=== PATIENT | female | born 1985 | race Caucasian/White ===

== ENCOUNTER 2017-12-23 21:12 | Inpatient (IN) | payer OTHER ==
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
[2017-12-23 22:13] LABS: ALT 26 U/L (9-52); AST 51 U/L (14-36); Acetaminophen <10.0 ug/mL; Albumin 4.7 g/dL (3.5-5.0); Alcohol <10 mg/dL; Alkaline Phosphatase 95 U/L (38-126); Anion Gap 13 mmol/L; Blood Urea Nitrogen 10 mg/dL (7-17); Calcium 10.7 mg/dL (8.4-10.2); Carbon Dioxide 25 mmol/L (22-30); Chloride 106 mmol/L (98-107); Glucose 102 mg/dL (74-99); Potassium 4.7 mmol/L (3.5-5.1); Sodium 144 mmol/L (137-145); Total Bilirubin 0.8 mg/dL (0.2-1.3); Total Protein 7.9 g/dL (6.3-8.2)
[2017-12-23 22:15] LABS: Ammonia <9 umol/L (<30)
[2017-12-23 22:17] LABS: Lactic Acid, Venous 2.4 mmol/L (0.7-2.0)
--- NOTE | 2017-12-23 22:30 | XR ---
EXAMINATION TYPE: XR chest 1V portable DATE OF EXAM: 12/23/2017 COMPARISON: NONE HISTORY: Fever TECHNIQUE: Single frontal view of the chest is obtained. FINDINGS: Heart and mediastinum are normal. Lungs are clear. Diaphragm is normal. Bony thorax is nor mal. Pulmonary vascularity is normal. IMPRESSION: Normal chest
[2017-12-23 22:51] LABS: Basophils % (A) 0 %; Eosinophils # (A) 0.2 k/uL (0-0.7); Eosinophils % (A) 1 %; HGB 13.1 gm/dL (11.4-16.0); Lymphocytes # (A) 2.5 k/uL (1.0-4.8); Lymphocytes % (A) 16 %; MCH 28.1 pg (25.0-35.0); MCHC 32.8 g/dL (31.0-37.0); MCV 85.5 fL (80.0-100.0); Mean Platelet Volume 7.6; Monocytes # (A) 0.7 k/uL (0-1.0); Monocytes % (A) 5 %; Neutrophils # (A) 12.5 k/uL (1.3-7.7); Neutrophils % (A) 78 %; Platelet Count 333 k/uL (150-450); RBC 4.68 m/uL (3.80-5.40); RDW 15.1 % (11.5-15.5)
[2017-12-23 22:53] LABS: Amorphous Sediment,Urine Few /hpf; Appearance,Urine Cloudy (Clear); Bilirubin,Urine Negative (Negative); Blood,Urine Negative (Negative); Color,Urine Yellow; Glucose,Urine (UA) Negative (Negative); Ketones,Urine Trace (Negative); Leukocyte Esterase,Urine Negative (Negative); Mucus,Urine Rare /hpf; Nitrite,Urine Negative (Negative); PH, Urine 8.5 (5.0-8.0); Protein,Urine Negative (Negative); RBC,Urine 2 /hpf (0-5); Specific Gravity,Urine 1.011 (1.001-1.035); Squamous Epithelial Cell,Urine 1 /hpf (0-4); Urobilinogen,Urine <2.0 mg/dL (<2.0); WBC,Urine <1 /hpf (0-5)
[2017-12-23 22:54] LABS: Amphetamine Screen,Urine Not Detected (NotDetected); Barbiturate Screen,Urine Not Detected (NotDetected); Benzodiazepines Screen,Urine Not Detected (NotDetected); Cocaine Screen,Urine Not Detected (NotDetected); Methadone Screen, Urine Not Detected (NotDetected); Opiate Screen,Urine Not Detected (NotDetected); Oxycodone Screen, Urine Not Detected (NotDetected); Phencyclidine Screen,Urine Not Detected (NotDetected); Tricyclic Antidepressant,Urine Not Detected (NotDetected); Urn Cannabinoid Scrn Detected (NotDetected)
[2017-12-24] MEDS ORDERED: SODIUM CHLORIDE 0.9% 1,000 ML IV ONE (00:52)
[2017-12-24] MEDS ORDERED: LORazepam 2 MG/ML INJ IM STA (03:50)
[2017-12-24] MEDS ORDERED: MAG HYDROX/AL HYDROX/SIMETH 30 ML CUP PO PRN (04:55)
[2017-12-24] MEDS ORDERED: MAGNESIUM HYDROXIDE 2,400 MG/10 ML CUP PO PRN (04:55)
[2017-12-24] MEDS ORDERED: ACETAMINOPHEN TAB 325 MG TAB PO PRN (04:55)
[2017-12-24] MEDS ORDERED: ZIPRASIDONE 20 MG VIAL IM PRN (04:55)
[2017-12-24 05:44] VITALS: BP 149/98; PULSE 114; RESP 16; TEMP 99.3
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
[2017-12-24] MEDS ORDERED: NICOTINE 21MG/24HR PATCH TRANSDERM SCH (09:00)
== END 2017-12-24 06:40 | disposition short-term general hospital (02) | DRG 885 ==
LOC: EC 21:12 → 3MHU 12-24 03:37
PROVIDERS: ADMIT Psychiatry & Neurology Psychiatry; ATTEND Psychiatry & Neurology Psychiatry
DX: F23 Brief psychotic disorder (principal); E86.0 Dehydration; F17.200 Nicotine dependence, unspecified, uncomplicated; R50.9 Fever, unspecified; R51 Headache
CPT/HCPCS: 36415; 71045; 80053; 80306; 80320; 81001; 81025; 82075; 82140; 83520; 83605; 83735; 84443; 85025; 96360; 96372; 99285

== ENCOUNTER 2017-12-24 05:38 | Inpatient (IN) | payer OTHER ==
[2017-12-24] MEDS ORDERED: ACETAMINOPHEN TAB 325 MG TAB PO PRN (07:00)
[2017-12-24] MEDS ORDERED: NALOXONE 0.4 MG/ML 1 ML VIAL IV PRN (07:00)
[2017-12-24] MEDS ORDERED: HYDROcodone/APAP 5-325MG 1 EACH TAB PO PRN (07:00)
[2017-12-24] MEDS ORDERED: DOCUSATE 100 MG CAP PO PRN (07:00)
[2017-12-24] MEDS ORDERED: ONDANSETRON 4 MG/2 ML VIAL IVP PRN (07:00)
[2017-12-24] MEDS ORDERED: CALCIUM CARBONATE 500 MG CHEWABLE PO PRN (07:00)
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
[2017-12-24] MEDS ORDERED: VANCOMYCIN 1,000 MG in SODIUM CHLORIDE 0.9% 250 ML IVPB STA (07:11)
[2017-12-24] MEDS ORDERED: VANCOMYCIN IV PER PHARMACY 1 EACH MISC MISCELLANE PRN (07:11)
--- NOTE | 2017-12-24 07:54 | CT ---
EXAMINATION TYPE: CT brain wo con DATE OF EXAM: 12/24/2017 COMPARISON: NONE HISTORY: LOWE, possible bacterial meningitis CT DLP: 935.9 mGycm. Automated Exposure Control for Dose Reduction was Utilized. TECHNIQUE: CT scan of the head is performed without contrast. FINDINGS: There is no acute intracranial hemorrhage, mass effect, or midline shift identified. The ventricles and sulci are within normal limits in size. Joseph-white matter differentiation is maintain ed. There appears to be old fracture deformity medial wall left orbit axial image 9. Globes are intac t bilaterally. Visualized paranasal sinuses are clear. No suspicious opacification of mastoid air geraldo ls is seen. IMPRESSION: No acute intracranial hemorrhage, mass effect, or midline shift is seen.
[2017-12-24 08:36] LABS: Basophils % (A) 0 %; Eosinophils # (A) 0.1 k/uL (0-0.7); Eosinophils % (A) 1 %; HCT 38.8 % (34.0-46.0); HGB 12.7 gm/dL (11.4-16.0); Lymphocytes # (A) 1.9 k/uL (1.0-4.8); Lymphocytes % (A) 18 %; MCH 28.6 pg (25.0-35.0); MCHC 32.8 g/dL (31.0-37.0); MCV 87.1 fL (80.0-100.0); Mean Platelet Volume 8.2; Monocytes # (A) 0.5 k/uL (0-1.0); Monocytes % (A) 5 %; Neutrophils # (A) 7.7 k/uL (1.3-7.7); Neutrophils % (A) 74 %; Platelet Count 293 k/uL (150-450); RBC 4.45 m/uL (3.80-5.40); WBC 10.4 k/uL (3.8-10.6)
[2017-12-24 08:51] LABS: ALT 33 U/L (9-52); AST 52 U/L (14-36); Albumin 3.8 g/dL (3.5-5.0); Alkaline Phosphatase 82 U/L (38-126); Anion Gap 10 mmol/L; Blood Urea Nitrogen 10 mg/dL (7-17); Calcium 9.3 mg/dL (8.4-10.2); Carbon Dioxide 22 mmol/L (22-30); Chloride 110 mmol/L (98-107); Glucose 96 mg/dL (74-99); Magnesium 2.1 mg/dL (1.6-2.3); Potassium 4.3 mmol/L (3.5-5.1); Prothrombin Time 10.2 sec (9.0-12.0); Sodium 142 mmol/L (137-145); Total Bilirubin 0.7 mg/dL (0.2-1.3); Total Protein 6.6 g/dL (6.3-8.2)
[2017-12-24] MEDS ORDERED: cefTRIAXone 2 MG in SODIUM CHLORIDE 0.9% 50 ML IVPB SCH (09:00)
[2017-12-24] MEDS: SODIUM CHLORIDE 0.9% 1,000 ML IV SCH ×2 (09:44→17:27)
[2017-12-24] MEDS: cefTRIAXone IN SWFI 2,000 MG/20 ML SYRINGE IVP SCH (09:45)
[2017-12-24] MEDS: VANCOMYCIN 1,250 MG in SODIUM CHLORIDE 0.9% 250 ML IVPB SCH ×3 (09:45→23:16)
[2017-12-24] MEDS: NICOTINE 21MG/24HR PATCH TRANSDERM SCH (09:45)
--- NOTE | 2017-12-24 12:25 | P.PN ---
Progress Note - Text Progress Note Date: 12/24/17 Briefly this is a 32-year-old female that was admitted to the mental health unit initially for confusion disorientation and headache and was found to be febrile with a leukocytosis of 16 and elevated serum lactic acid of 2.4. She was evaluated by Dr. lien zayas when transferred to the medical unit for concern for possible meningitis and started on empiric IV antibiotic therapy with IV vancomycin and Rocephin, the patient was scheduled to have a lumbar puncture but after signing the consent form she then refused to go. In my encounter with the patient she was pretty uncooperative, answering vaguely to questions regarding her headache and nausea. She however was amenable to having the procedure done. We will attempt to take her down again noted to have her LP done. Of note the patient has been afebrile and her leukocytosis has resolved. We will continue to follow her clinical course
[2017-12-24] MEDS: ALPRAZolam 0.25 MG TAB PO PRN (12:50)
[2017-12-24] MEDS ORDERED: HALOPERIDOL LACTATE 5 MG/ML 1 ML VIAL IM PRN ×2 (16:09→16:22)
[2017-12-24] MEDS ORDERED: LORazepam 2 MG/ML INJ IV PRN ×2 (16:10→18:03)
[2017-12-24 16:24] LABS: Glucose,CSF 54 mg/dL (40-70); Total Protein,CSF 25 mg/dL (12-60)
[2017-12-24 16:37] LABS: Appearance,CSF Clear; CSF Tube Number 4; Nucleated Cells, CSF 4 u/L (0-5); Red Blood Cell,CSF 77 u/L (0-10)
--- NOTE | 2017-12-24 17:17 | FL ---
EXAMINATION TYPE: FL guided lumbar puncture LP DATE OF EXAM: 12/24/2017 COMPARISON: NONE HISTORY: Altered mental status, possible bacterial meningitis TECHNIQUE: Fluoroscopy assisted lumbar puncture for CSF. A total of 1 minute 13 seconds of fluoroscop ic time was utilized during procedure. Zero spot images are saved to PACS. FINDINGS: Procedure of fluoroscopic assisted lumbar puncture for CSF was performed. Benefits, risks, and alternatives were discussed. Informed consent was obtained. Overlying skin was prepped and cleansed with Betadine. Lidocaine is used as anesthetic into the skin and subcutaneous tissue. Under fluoroscopic guidance, oblique paraspinal approach was utilized target ing L2-L3 disc space. Under fluoroscopic guidance, a spinal needle was advanced into spinal canal. Cl ear CSF fluid was obtained. Following obtainment of approximately 6 cc of CSF into 4 vials, needle was withdrawn. Patient tolerated procedure well without any immediate complication. Patient was kept in the departme nt for short stay after procedure and then sent back to floor in stable condition. Vital signs were m onitored before, during, and after procedure and were stable. Orders for obtain CSF fluid was performed by ordering physician and/or physician assistant store manager sales. IMPRESSION: Successful fluoroscopic guided lumbar puncture for CSF analysis.
[2017-12-24] MEDS ORDERED: ZIPRASIDONE 20 MG VIAL IM SCH (18:00)
[2017-12-24] MEDS ORDERED: ZIPRASIDONE 20 MG VIAL IM PRN (18:01)
[2017-12-25] MEDS: SODIUM CHLORIDE 0.9% 1,000 ML IV SCH ×3 (00:21→15:43)
[2017-12-25] MEDS: cefTRIAXone IN SWFI 2,000 MG/20 ML SYRINGE IVP SCH (07:54)
[2017-12-25] MEDS: VANCOMYCIN 1,250 MG in SODIUM CHLORIDE 0.9% 250 ML IVPB SCH (07:54)
[2017-12-25] MEDS: NICOTINE 21MG/24HR PATCH TRANSDERM SCH ×2 (07:54→15:37)
[2017-12-25 08:13] LABS: HCT 36.4 % (34.0-46.0); HGB 11.2 gm/dL (11.4-16.0); MCH 27.4 pg (25.0-35.0); MCHC 30.9 g/dL (31.0-37.0); MCV 88.8 fL (80.0-100.0); Mean Platelet Volume 8.1; Platelet Count 233 k/uL (150-450); RDW 15.2 % (11.5-15.5); WBC 7.1 k/uL (3.8-10.6)
[2017-12-25 08:29] LABS: ALT 28 U/L (9-52); AST 31 U/L (14-36); Albumin 3.2 g/dL (3.5-5.0); Alkaline Phosphatase 71 U/L (38-126); Anion Gap 7 mmol/L; Blood Urea Nitrogen 10 mg/dL (7-17); Carbon Dioxide 23 mmol/L (22-30); Chloride 109 mmol/L (98-107); Glucose 82 mg/dL (74-99); Potassium 4.1 mmol/L (3.5-5.1); Sodium 139 mmol/L (137-145); Total Bilirubin 0.4 mg/dL (0.2-1.3); Total Protein 5.7 g/dL (6.3-8.2)
[2017-12-25] MEDS: ALPRAZolam 0.25 MG TAB PO PRN ×3 (08:31→21:51)
--- NOTE | 2017-12-25 11:13 | CONS ---
CONSULTATION DATE OF CONSULTATION: 12/24/2017. CHIEF COMPLAINT: Headache. HISTORY OF PRESENT ILLNESS: The patient is a pleasant 32-year-old, female who is being evaluated today on 12/24/2017 by the neurology service per the request of Dr. Flores for a headache. The patient was brought into [facility] with complaints of a severe headache that she rated initially at 9/10 in intensity. She was also complaining of some confusion. She was found to have leukocytosis in the emergency room with a WBC count of 16. There was concerns for meningitis and a lumbar puncture was done. Her CSF workup was negative for any meningitis. A CT scan of the brain was done, which was normal. A repeat CBC was normal. Her comprehensive metabolic profile was normal except for mildly elevated AST at 52. The patient states that she does have history of headaches, which she takes over the counter analgesics for. At the time of my evaluation, her headache has resolved. She is somewhat anxious and teary at times. She does have Xanax ordered as needed. At home, she does take Imitrex injections as needed for her migraines. She denies any lateralizing numbness or weakness. PAST MEDICAL HISTORY: Migraine headaches, anxiety disorder, history of and ankle surgery. SOCIAL HISTORY: The patient is a current every day smoker. She does report occasional marijuana use. She denies any alcohol or IV drug use. FAMILY HISTORY: Unknown. HOME MEDICATIONS: Reviewed in the chart. ALLERGIES: No known drug allergies. REVIEW OF SYSTEM: As mentioned above and otherwise negative. PHYSICAL EXAM: Vital signs show a temperature of 97.6, pulse 84, respiration 18, blood pressure 109/69. GENERAL APPEARANCE: The patient is a well-developed female, who appears to be an no acute distress, but does appear to be anxious. HEENT: Normocephalic, atraumatic, no facial asymmetry is seen. NECK: Supple with no masses felt. CARDIOVASCULAR: Regular rate and rhythm. ABDOMEN: Nontender, nondistended. Extremities showed no edema or clubbing. NEUROLOGICAL EXAM: The patient is alert aware and oriented x3. Speech and language are normal. Strength is full in all 4 extremities. Sensory exam was normal to light touch in all 4 extremities. No tremors or seizure-like activity is seen. No facial asymmetry is seen on cranial nerve testing. IMPRESSION: 1. Atypical headache. 2. Leukocytosis, resolved. 3. Tobacco dependence. RECOMMENDATION: The patient's initial presentation of headache and confusion, along with leukocytosis, there was concerns for intracranial etiology. I did review her CSF workup, which showed no evidence of any bacterial or viral meningitis. Her headache has resolved and her repeat CBC shows no evidence of any leukocytosis. Continue analgesics as needed if her headaches returned. She does have Imitrex injections at home. From a neurology standpoint, no further inpatient neurological workup is needed. Her CT scan of the brain was normal. She may follow up as needed in clinic for future migraine therapy. Thank you for allowing me to participate in the care of your patient. If you have any questions, please feel free to contact me. MMODL / IJN: [id number] /
--- NOTE | 2017-12-25 12:13 | P.PN ---
Subjective Progress Note Date: 12/25/17 Principal diagnosis: FUO Patient did not sleep all night last night, currently she is sleeping after receiving some ativan this am. Objective - Vital Signs Vital signs: Vital Signs Temp 99.2 F 12/25/17 07:24 Pulse 71 12/25/17 08:00 Resp 16 12/25/17 08:00 BP 111/68 12/25/17 07:24 Pulse Ox 98 12/25/17 07:24 Intake & Output 12/24/17 12/25/17 12/25/17 18:59 06:59 18:59 Intake Total 2210 960 200 Balance 2210 960 200 Weight 70 kg 70 kg Intake: Intake, IV Titration 2210 960 Amount Sodium Chloride 0.9% 1, 960 960 000 ml @ 120 mls/hr IV . Q8H20M YANCY Rx#:[id number] Vancomycin 1,250 mg In 1250 Sodium Chloride 0.9% 250 ml @ 125 mls/hr IVPB Q8HR YNACY Rx#:[id number] Oral 200 Other: # Voids 5 1 # Bowel Movements 1 - Exam General: non toxic, no distress, appears at stated age, normal weight, well kept and groomed Derm: Multiple areas of superficial lacerations and ecchymoses, warm, dry Head: atraumatic, normocephalic, symmetric Eyes: EOMI, no lid lag, anicteric sclera, pupils equal round reactive to light ENT: Nose and ears atraumatic, no thrush, no pharyngeal erythema Neck: No thyromegaly, no cervical lymphadenopathy, trachea midline, supple, full range of motion Mouth: no lip lesion, mucus membranes dry Cardiovascular: S1S2 tachycardic, no murmur, positive posterior tibial pulse bilateral, no edema, capillary refill less than 2 seconds Lungs: CTA bilateral, no rhonchi, no rales , no accessory muscle use Abdominal: soft, nontender to palpation, no guarding, no appreciable organomegaly, normal bowel sounds Ext: no gross muscle atrophy, muscle strength 5 out of 5 in all 4 extremities grossly, no contractures, Neuro: Nonfocal - Labs CBC & Chem 7: 12/25/17 07:34 12/25/17 07:34 Labs: Abnormal Lab Results - Last 24 Hours (Table) 12/24/17 12/25/17 12/25/17 Range/Units 14:55 07:34 07:34 Hgb 11.2 L (11.4-16.0) gm/dL MCHC 30.9 L (31.0-37.0) g/dL Chloride 109 H (98-107) mmol/L Total Protein 5.7 L (6.3-8.2) g/dL Albumin 3.2 L (3.5-5.0) g/dL CSF RBC 77 H (0-10) u/L Microbiology - Last 24 Hours (Table) 12/24/17 08:00 Blood Culture - Preliminary Blood No Growth after 24 hours 12/24/17 08:12 Blood Culture - Preliminary Blood No Growth after 24 hours 12/24/17 16:33 CSF Gram Stain - Final Cerebral Spinal Fluid Not Reportable CSF Culture - Final Not Reportable 12/24/17 16:54 CSF Gram Stain - Preliminary Cerebral Spinal Fluid CSF Culture - Preliminary 12/24/17 16:54 Anaerobic Culture - Preliminary Cerebral Spinal Fluid Assessment and Plan Plan: Headache with elevated WBC and fever - Meningitis ruled out, likely migraine versus tension headache - CT head, lumbar puncture, results reviewed, WNL -Neurology consultation appreciated -D/C vanco, continue empiric rocephin Acute encephalopathy - etiology unable to be determined at this time - concern for underlying infection vs psychosis - patient tried to leave the ED -Currently has a sitter -Will go back to psych unit once medically stable. -Attempt to obtain records from [place] Tobacco abuse - cessation - nicotine replacement
--- NOTE | 2017-12-25 13:40 | XR ---
EXAMINATION TYPE: XR chest 2V DATE OF EXAM: 12/25/2017 COMPARISON: NONE HISTORY: Chest pain TECHNIQUE: Frontal and lateral views of the chest are obtained. FINDINGS: There is no focal air space opacity. No evidence for pneumothorax. No pleural effusion. The cardiac silhouette size is within normal limits. The osseous structures are grossly intact. IMPRESSION: 1. No acute cardiopulmonary process.
--- NOTE | 2017-12-25 14:45 | P.CN ---
Psychiatric Consult - . Consult date: 12/25/17 Consult:: 12/25/17 14:16 Patient was seen for a psychiatry consultation regarding psychosis. According to her report and the chart she was in the gas station bathroom, fell down in the bathroom but does not remember the details, when she came out she was feeling weird had severe headaches was seeing dark spots, felt confused and was brought to the hospital in an ambulance. She is not able to tell me who called the ambulance. Patient said she had similar episodes in the past and did not seek any medical treatment. She does not take any medications on a regular basis for migraine or other kinds of headaches. She said she has anxiety, PTSD from watching injured soldiers in [place], TBI from hearing passive firings etc. she said she takes Xanax from a private doctor for anxiety. 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 Her TBI symptoms include forgetfulness and unable to remember things well. Her PTSD symptoms include flashbacks and she said she handles it by drinking a peppermint schnapps. She said she doesn't like to go to [place] for treatment because there are several soldiers and brings back old memories. She said she was never in a psychiatric hospital and does not take any psych medicines except for Xanax. She denies current suicidal and homicidal ideas. She also decides hallucinations delusional thinking etc. This is a female with good hygiene. She is wearing hospital gowns. She does not show any psychomotor agitation or retardation. Her speech is spontaneous and goal-directed. Her mood is euthymic to cheerful. She gets dramatic, got tearful when she was describing her "nightmares". She denies hallucinations and delusional thinking. She denies suicidal and homicidal ideas. She is very well oriented. She is able to spell house both forwards and backwards correctly. She is also able to name the last 4 presidents correctly. She is able to describe her recent episode well. But she insists that she does not have a child and broke up with the father of the child because of her sexual orientation which is bisexual. Her insight appears to be adequate. Judgment is questionable since her reported history does not make good sense and seems to be avoiding information or giving wrong information. Assessment: 1.She reports of having PTSD and TBI, being in the [employer] for 4 years and being discharged as E4 at end of 2007 or 2008. Since she was born on 1985, she probably started her school in 1992 or 1993 and probably graduated in 2005 or 2006. 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 2. Possible migraine headaches. 3. No evidence of psychosis or cognitive dysfunction. 4. She denies suicidal and homicidal thoughts. She wants to know what happened to her car which she had left in the gas station. 5. She said [facility]. 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 Suggestion: 1. [facility] for [facility]. 2. Patient is not considered at risk for suicide or homicide and so she can be discharged to live at home or to the [facility] if there is no home since she is willing to go to [facility].
[2017-12-25] MEDS: MELATONIN 3 MG TABLET PO PRN (23:49)
[2017-12-26] MEDS: SODIUM CHLORIDE 0.9% 1,000 ML IV SCH ×3 (00:20→18:29)
[2017-12-26] MEDS: cefTRIAXone IN SWFI 2,000 MG/20 ML SYRINGE IVP SCH (10:38)
[2017-12-26] MEDS: NICOTINE 21MG/24HR PATCH TRANSDERM SCH (10:38)
[2017-12-26] MEDS: ALPRAZolam 0.25 MG TAB PO PRN ×3 (10:44→21:11)
--- NOTE | 2017-12-26 15:01 | P.PN ---
Subjective Progress Note Date: 12/26/17 Principal diagnosis: FUO Patient was very tearful and tense intermittently throughout the conversation. She claimed that she needs help and [facility]. Objective - Vital Signs Vital signs: Vital Signs Temp 97.7 F 12/26/17 06:29 Pulse 54 L 12/26/17 06:29 Resp 12 12/26/17 08:16 BP 100/44 12/26/17 06:29 Pulse Ox 99 12/26/17 06:29 Intake & Output 12/25/17 12/26/17 12/26/17 18:59 06:59 18:59 Intake Total 200 400 Balance 200 400 Weight 70 kg 70 kg Intake: Oral 200 400 Other: # Voids 3 2 1 - Exam General: non toxic, no distress, appears at stated age, normal weight, well kept and groomed Derm: Multiple areas of superficial lacerations and ecchymoses, warm, dry Head: atraumatic, normocephalic, symmetric Eyes: EOMI, no lid lag, anicteric sclera, pupils equal round reactive to light ENT: Nose and ears atraumatic, no thrush, no pharyngeal erythema Neck: No thyromegaly, no cervical lymphadenopathy, trachea midline, supple, full range of motion Mouth: no lip lesion, mucus membranes dry Cardiovascular: S1S2 tachycardic, no murmur, positive posterior tibial pulse bilateral, no edema, capillary refill less than 2 seconds Lungs: CTA bilateral, no rhonchi, no rales , no accessory muscle use Abdominal: soft, nontender to palpation, no guarding, no appreciable organomegaly, normal bowel sounds Ext: no gross muscle atrophy, muscle strength 5 out of 5 in all 4 extremities grossly, no contractures, Psychiatry: Tearful and sad Neuro: Nonfocal - Labs CBC & Chem 7: 12/25/17 07:34 12/25/17 07:34 Labs: Microbiology - Last 24 Hours (Table) 12/25/17 11:20 Urine Culture - Final Urine,Clean Catch 12/24/17 08:00 Blood Culture - Preliminary Blood No Growth after 48 hours 12/24/17 08:12 Blood Culture - Preliminary Blood No Growth after 48 hours 12/24/17 16:54 Anaerobic Culture - Preliminary Cerebral Spinal Fluid 12/24/17 16:54 CSF Gram Stain - Preliminary Cerebral Spinal Fluid CSF Culture - Preliminary Assessment and Plan Plan: Headache with elevated WBC and fever - Resolved, meningitis ruled out, likely migraine versus tension headache - CT head, lumbar puncture, results reviewed, WNL -Neurology consultation appreciated -D/C antibiotics Acute encephalopathy -Likely secondary to psychosis, discussed with psychiatrist and he is unwilling to take patient back to the mental health unit because psychiatrist thinks that she is ''putting up a show'' -[facility] is refusing to go with [facility]. Discussed with social work job titles and home care scheduler. Tobacco abuse - cessation - nicotine replacement
[2017-12-26 23:05] VITALS: TEMP 98.5
[2017-12-27] MEDS: MELATONIN 3 MG TABLET PO PRN (00:11)
[2017-12-27] MEDS: SODIUM CHLORIDE 0.9% 1,000 ML IV SCH (02:42)
[2017-12-27 07:15] VITALS: BP 96/45; PULSE 64; RESP 18
[2017-12-27] MEDS: NICOTINE 21MG/24HR PATCH TRANSDERM SCH (07:55)
[2017-12-27] MEDS: ALPRAZolam 0.25 MG TAB PO PRN (09:04)
--- NOTE | 2017-12-27 10:42 | P.DS ---
Providers Date of admission: 12/24/17 08:20 Expected date of discharge: 12/27/17 Attending physician: Cris Flores DO Consults: 12/24/17 07:04 Consult Physician Routine Consulting Provider: Poppy Olsen Consult Reason/Comments: psychosis Do you want consulting provider notified?: Yes Consult Physician Routine Consulting Provider: Teri Alarcon Consult Reason/Comments: confusion, LOWE, meningitis ? Do you want consulting provider notified?: Yes Primary care physician: Stated None Hospital Course: 32 y/o female that was admitted to [facility] with headache and altered mental statuswith what was thought to be psychosis. Patient was evaluated by neuro and psych no further input. Patient was cleared to be discharged by psych since she is not suicidal and not homicidal. At this time will discharge to intermediate. Patient Condition at Discharge: Stable Plan - Discharge Summary Discharge Rx Participant: No New Discharge Prescriptions: Continue Cholecalciferol (Vitamin D3) [Vitamin D3] 2,000 unit PO DAILY Multivits,Th W-Ca,Fe,Oth Min [Therapeutic M] 1 tab PO DAILY Loratadine [Claritin] 10 mg PO DAILY Fluticasone Nasal Newfane [Flonase Nasal Newfane] 2 spr EA NOSTRIL DAILY SUMAtriptan SUCCINATE [Imitrex] 4 mg SQ DAILY PRN PRN Reason: Migraine Headache Discontinued Ondansetron HCl [Zofran] 8 mg PO Q6H PRN PRN Reason: Nausea No Action Diclofenac Sodium/Misoprostol [Diclofenac-Misoprost 50-200 Tb] 1 tab PO TID Discharge Medication List Cholecalciferol (Vitamin D3) [Vitamin D3] 2,000 unit PO DAILY 12/24/17 [History] Diclofenac Sodium/Misoprostol [Diclofenac-Misoprost 50-200 Tb] 1 tab PO TID [History] Fluticasone Nasal [place]fane [Flonase Nasal Newfane] 2 spr EA NOSTRIL DAILY 12/24/17 [ History] Loratadine [Claritin] 10 mg PO DAILY 12/24/17 [History] Multivits,Th W-Ca,Fe,Oth Min [Therapeutic M] 1 tab PO DAILY 12/24/17 [History] SUMAtriptan SUCCINATE [Imitrex] 4 mg SQ DAILY PRN 12/24/17 [History] Patient Instructions/Handouts: Cannabis Abuse (DC), Anxiety (GEN) Activity/Diet/Wound Care/Special Instructions: No illegal drug use. Smoking cessation information provided. Regular diet Activity as tolerated. Outpatient psychiatric counseling advised. Discharge Disposition: HOME SELF-CARE
== END 2017-12-27 14:10 | disposition home or self-care (01) | DRG 102 ==
LOC: 4MS4W 06:55 → OBSVTOIN 08:20
PROVIDERS: ADMIT Internal Medicine; ATTEND Internal Medicine
DX: G43.909 Migraine, unspecified, not intractable, without status migrainosus (principal); G93.40 Encephalopathy, unspecified; D72.829 Elevated white blood cell count, unspecified; E86.0 Dehydration; T50.906A Underdosing of unspecified drugs, medicaments and biological substances, initial encounter; Z91.128 Patient's intentional underdosing of medication regimen for other reason; F12.90 Cannabis use, unspecified, uncomplicated; F17.200 Nicotine dependence, unspecified, uncomplicated
CPT/HCPCS: 62270; 70450; 71046; 80053; 80202; 82945; 83735; 84157; 84703; 85025; 85027; 85610; 85730; 87040; 87070; 87075; 87086; 87205; 87502; 89050

== ENCOUNTER 2017-12-28 17:15 | Emergency (ER) | payer OTHER ==
[2017-12-28 17:22] VITALS: RESP 18; TEMP 98.9
--- NOTE | 2017-12-28 17:52 | ED ---
General Adult HPI - General Chief complaint: Psychiatric Symptoms Stated complaint: Mental health Time Seen by Provider: 12/28/17 17:33 Source: patient, RN notes reviewed, old records reviewed Mode of arrival: ambulatory Limitations: no limitations - History of Present Illness Initial comments: This is a 32-year-old female the ER. Patient is today for evaluation regarding suicidal ideation. Patient is under arrest brought by [facility] and is under petition for suicidal thoughts. Depression. Patient denies pain. Denies any other new complaints denies drug abuse, positive EtOH - Related Data Home Medications Medication Instructions Recorded Confirmed Cholecalciferol (Vitamin D3) 2,000 unit PO DAILY 12/24/17 12/28/17 [Vitamin D3] Diclofenac Sodium/Misoprostol 1 tab PO TID 12/24/17 12/28/17 [Diclofenac-Misoprost 50-200 Tb] Fluticasone Nasal [place] [Flonase 2 spr EA NOSTRIL DAILY 12/24/17 12/28/17 Nasal [place]] Loratadine [Claritin] 10 mg PO DAILY 12/24/17 12/28/17 Multivits,Th W-Ca,Fe,Oth Min 1 tab PO DAILY 12/24/17 12/28/17 [Therapeutic M] SUMAtriptan SUCCINATE [Imitrex] 4 mg SQ DAILY PRN 12/24/17 12/28/17 Allergies Allergy/AdvReac Type Severity Reaction Status Date / Time No Known Allergies Allergy Verified 12/28/17 17:23 Review of Systems ROS Statement: Those systems with pertinent positive or pertinent negative responses have been documented in the HPI. ROS Other: All systems not noted in ROS Statement are negative. Past Medical History Past Medical History: No Reported History Additional Past Medical History / Comment(s): Migraines History of Any Multi-Drug Resistant Organisms: MRSA Date of last positivie culture/infection: 2008 per pt MDRO Source:: blood Past Surgical History: No Surgical Hx Reported, Section Additional Past Surgical History / Comment(s): controll implant right upper arm. , right ankle surgery d/t fracture Past Anesthesia/Blood Transfusion Reactions: Postoperative Nausea & Vomiting ( PONV) Past Psychological History: Anxiety, Depression Smoking Status: Current every day smoker Past Alcohol Use History: None Reported Past Drug Use History: None Reported - Past Family History Father History Unknown: Yes Additional Family Medical History / Comment(s): unknown reports she has no contact with her family General Exam Limitations: no limitations General appearance: alert, in no apparent distress Head exam: Present: atraumatic, normocephalic, normal inspection Eye exam: Present: normal appearance, PERRL, EOMI. Absent: scleral icterus, conjunctival injection, periorbital swelling ENT exam: Present: normal exam, mucous membranes moist Neck exam: Present: normal inspection. Absent: tenderness, meningismus, lymphadenopathy Respiratory exam: Present: normal lung sounds bilaterally. Absent: respiratory distress, wheezes, rales, rhonchi, stridor Cardiovascular Exam: Present: regular rate, normal rhythm, normal heart sounds. Absent: systolic murmur, diastolic murmur, rubs, gallop, clicks GI/Abdominal exam: Present: soft, normal bowel sounds. Absent: distended, tenderness, guarding, rebound, rigid Extremities exam: Present: normal inspection, full ROM, normal capillary refill. Absent: tenderness, pedal edema, joint swelling, calf tenderness Back exam: Present: normal inspection Neurological exam: Present: alert, oriented X3, CN II-XII intact Psychiatric exam: Present: normal affect, normal mood Skin exam: Present: warm, dry, intact, normal color. Absent: rash Course Vital Signs 12/28/17 17:18 Temperature 98.9 F Pulse Rate 111 H Respiratory 18 Rate Blood Pressure 157/94 O2 Sat by Pulse 99 Oximetry Medical Decision Making - Lab Data Result diagrams: 12/28/17 19:25 12/28/17 19:25 Lab Results 12/28/17 12/28/17 12/28/17 Range/Units 19:25 19:25 19:25 WBC 9.9 (3.8-10.6) k/uL RBC 4.65 (3.80-5.40) m/uL Hgb 13.0 (11.4-16.0) gm/dL Hct 39.9 (34.0-46.0) % MCV 85.9 (80.0-100.0) fL MCH 28.0 (25.0-35.0) pg MCHC 32.6 (31.0-37.0) g/dL RDW 15.3 (11.5-15.5) % Plt Count 280 (150-450) k/uL Neutrophils % 73 % Lymphocytes % 21 % Monocytes % 4 % Eosinophils % 1 % Basophils % 0 % Neutrophils # 7.2 (1.3-7.7) k/uL Lymphocytes # 2.1 (1.0-4.8) k/uL Monocytes # 0.4 (0-1.0) k/uL Eosinophils # 0.1 (0-0.7) k/uL Basophils # 0.0 (0-0.2) k/uL Sodium 146 H (137-145) mmol/L Potassium 4.4 (3.5-5.1) mmol/L Chloride 109 H (98-107) mmol/L Carbon Dioxide 22 (22-30) mmol/L Anion Gap 15 mmol/L BUN 13 (7-17) mg/dL Creatinine 0.70 (0.52-1.04) mg/dL Est GFR (CKD-EPI)AfAm >90 (>60 ml/min/1.73 sqM) Est GFR (CKD-EPI)NonAf >90 (>60 ml/min/1.73 sqM) Glucose 90 (74-99) mg/dL Calcium 10.0 (8.4-10.2) mg/dL Total Bilirubin 0.2 (0.2-1.3) mg/dL AST 34 (14-36) U/L ALT 22 (9-52) U/L Alkaline Phosphatase 75 (38-126) U/L Total Protein 7.6 (6.3-8.2) g/dL Albumin 4.6 (3.5-5.0) g/dL Urine Color Urine Appearance (Clear) Urine pH (5.0-8.0) Ur Specific [place] (1.001-1.035) Urine Protein (Negative) Urine Glucose (UA) (Negative) Urine Ketones (Negative) Urine Blood (Negative) Urine Nitrite (Negative) Urine Bilirubin (Negative) Urine Urobilinogen (<2.0) mg/dL Ur Leukocyte Esterase (Negative) Urine HCG, Qual Not Detected (Not Detectd) Urine Opiates Screen (NotDetected) Ur Oxycodone Screen (NotDetected) Urine Methadone Screen (NotDetected) Ur Propoxyphene Screen (NotDetected) Ur Barbiturates Screen (NotDetected) U Tricyclic Antidepress (NotDetected) Ur Phencyclidine Scrn (NotDetected) Ur Amphetamines Screen (NotDetected) U Methamphetamines Scrn (NotDetected) U Benzodiazepines Scrn (NotDetected) Urine Cocaine Screen (NotDetected) U Marijuana (THC) Screen (NotDetected) 12/28/17 Range/Units 19:25 WBC (3.8-10.6) k/uL RBC (3.80-5.40) m/uL Hgb (11.4-16.0) gm/dL Hct (34.0-46.0) % MCV (80.0-100.0) fL MCH (25.0-35.0) pg MCHC (31.0-37.0) g/dL RDW (11.5-15.5) % Plt Count (150-450) k/uL Neutrophils % % Lymphocytes % % Monocytes % % Eosinophils % % Basophils % % Neutrophils # (1.3-7.7) k/uL Lymphocytes # (1.0-4.8) k/uL Monocytes # (0-1.0) k/uL Eosinophils # (0-0.7) k/uL Basophils # (0-0.2) k/uL Sodium (137-145) mmol/L Potassium (3.5-5.1) mmol/L Chloride (98-107) mmol/L Carbon Dioxide (22-30) mmol/L Anion Gap mmol/L BUN (7-17) mg/dL Creatinine (0.52-1.04) mg/dL Est GFR (CKD-EPI)AfAm (>60 ml/min/1.73 sqM) Est GFR (CKD-EPI)NonAf (>60 ml/min/1.73 sqM) Glucose (74-99) mg/dL Calcium (8.4-10.2) mg/dL Total Bilirubin (0.2-1.3) mg/dL AST (14-36) U/L ALT (9-52) U/L Alkaline Phosphatase (38-126) U/L Total Protein (6.3-8.2) g/dL Albumin (3.5-5.0) g/dL Urine Color Light Yellow Urine Appearance Clear (Clear) Urine pH 5.5 (5.0-8.0) Ur Specific [place] 1.009 (1.001-1.035) Urine Protein Negative (Negative) Urine Glucose (UA) Negative (Negative) Urine Ketones Negative (Negative) Urine Blood Negative (Negative) Urine Nitrite Negative (Negative) Urine Bilirubin Negative (Negative) Urine Urobilinogen <2.0 (<2.0) mg/dL Ur Leukocyte Esterase Negative (Negative) Urine HCG, Qual (Not Detectd) Urine Opiates Screen Not Detected (NotDetected) Ur Oxycodone Screen Not Detected (NotDetected) Urine Methadone Screen Not Detected (NotDetected) Ur Propoxyphene Screen Not Detected (NotDetected) Ur Barbiturates Screen Not Detected (NotDetected) U Tricyclic Antidepress Not Detected (NotDetected) Ur Phencyclidine Scrn Not Detected (NotDetected) Ur Amphetamines Screen Not Detected (NotDetected) U Methamphetamines Scrn Not Detected (NotDetected) U Benzodiazepines Scrn Not Detected (NotDetected) Urine Cocaine Screen Not Detected (NotDetected) U Marijuana (THC) Screen Detected H (NotDetected) Disposition Clinical Impression: Acute psychosis, Depression, Alcohol intoxication Disposition: HOME SELF-CARE Condition: Good Instructions: Alcohol Intoxication (ED) Referrals: None,Stated [Primary Care Provider] - 1-2 days
[2017-12-28 19:38] LABS: Basophils % (A) 0 %; Eosinophils # (A) 0.1 k/uL (0-0.7); Eosinophils % (A) 1 %; HCT 39.9 % (34.0-46.0); Lymphocytes # (A) 2.1 k/uL (1.0-4.8); Lymphocytes % (A) 21 %; MCHC 32.6 g/dL (31.0-37.0); MCV 85.9 fL (80.0-100.0); Mean Platelet Volume 8.1; Monocytes # (A) 0.4 k/uL (0-1.0); Monocytes % (A) 4 %; Neutrophils # (A) 7.2 k/uL (1.3-7.7); Neutrophils % (A) 73 %; Platelet Count 280 k/uL (150-450); RBC 4.65 m/uL (3.80-5.40); RDW 15.3 % (11.5-15.5); WBC 9.9 k/uL (3.8-10.6)
[2017-12-28 19:39] LABS: Appearance,Urine Clear (Clear); Bilirubin,Urine Negative (Negative); Blood,Urine Negative (Negative); Color,Urine Light Yellow; Glucose,Urine (UA) Negative (Negative); Ketones,Urine Negative (Negative); Leukocyte Esterase,Urine Negative (Negative); Nitrite,Urine Negative (Negative); PH, Urine 5.5 (5.0-8.0); Protein,Urine Negative (Negative); Specific Gravity,Urine 1.009 (1.001-1.035); Urobilinogen,Urine <2.0 mg/dL (<2.0)
[2017-12-28 19:50] LABS: Amphetamine Screen,Urine Not Detected (NotDetected); Barbiturate Screen,Urine Not Detected (NotDetected); Benzodiazepines Screen,Urine Not Detected (NotDetected); Cocaine Screen,Urine Not Detected (NotDetected); Methadone Screen, Urine Not Detected (NotDetected); Opiate Screen,Urine Not Detected (NotDetected); Oxycodone Screen, Urine Not Detected (NotDetected); Phencyclidine Screen,Urine Not Detected (NotDetected); Tricyclic Antidepressant,Urine Not Detected (NotDetected); Urn Cannabinoid Scrn Detected (NotDetected)
[2017-12-28 20:09] LABS: ALT 22 U/L (9-52); AST 34 U/L (14-36); Albumin 4.6 g/dL (3.5-5.0); Alkaline Phosphatase 75 U/L (38-126); Anion Gap 15 mmol/L; Blood Urea Nitrogen 13 mg/dL (7-17); Carbon Dioxide 22 mmol/L (22-30); Chloride 109 mmol/L (98-107); Glucose 90 mg/dL (74-99); Potassium 4.4 mmol/L (3.5-5.1); Sodium 146 mmol/L (137-145); Total Bilirubin 0.2 mg/dL (0.2-1.3); Total Protein 7.6 g/dL (6.3-8.2)
[2017-12-28 22:27] VITALS: BP 115/73; PULSE 73
== END 2017-12-28 22:55 | disposition home or self-care (01) ==
LOC: EC 17:15
DX: F23 Brief psychotic disorder (principal); F32.9 Major depressive disorder, single episode, unspecified; F10.120 Alcohol abuse with intoxication, uncomplicated; Z86.69 Personal history of other diseases of the nervous system and sense organs; Z86.14 Personal history of Methicillin resistant Staphylococcus aureus infection; F17.200 Nicotine dependence, unspecified, uncomplicated; Z79.1 Long term (current) use of non-steroidal anti-inflammatories (NSAID); Z79.51 Long term (current) use of inhaled steroids; Z79.899 Other long term (current) drug therapy
CPT/HCPCS: 36415; 80053; 80306; 81003; 81025; 82075; 85025; 99285

== ENCOUNTER 2018-01-09 17:26 | Emergency (ER) | payer OTHER ==
--- NOTE | 2018-01-09 18:32 | ED ---
Psych HPI - General Source: patient, police, RN notes reviewed, old records reviewed Mode of arrival: ambulatory - History of Present Illness MD Complaint: suicidal ideation <Cirilo Barbosa - Last Filed: 01/09/18 19:59> <Master Phan - Last Filed: 01/10/18 05:31> - General Chief Complaint: Psychiatric Symptoms Stated Complaint: Mental Health Time Seen by Provider: 01/09/18 17:51 - History of Present Illness Initial Comments: This is a 32-year-old female was brought in by police for evaluation of suicidal thoughts and ideation. She does have a history of being in this hospital for 4 psychiatric evaluation. She does admit to drinking alcohol tonight she believes it was a plane of vodka. She states she is homeless because she left her residence because of bugs she states is very [place] he can think of there. She is demonstrating some flight of ideas during the conversation. She does admit to being suicidal does not seem to have a specific plan however. She is under petition. She denies any street drugs. ( Cirilo Barbosa) - Related Data Home Medications Medication Instructions Recorded Confirmed Cholecalciferol (Vitamin D3) 2,000 unit PO DAILY 12/24/17 01/09/18 [Vitamin D3] Diclofenac Sodium/Misoprostol 1 tab PO TID 12/24/17 01/09/18 [Diclofenac-Misoprost 50-200 Tb] Fluticasone Nasal [place] [Flonase 2 spr EA NOSTRIL DAILY 12/24/17 01/09/18 Nasal [place]] Loratadine [Claritin] 10 mg PO DAILY 12/24/17 01/09/18 Multivits,Th W-Ca,Fe,Oth Min 1 tab PO DAILY 12/24/17 01/09/18 [Therapeutic M] SUMAtriptan SUCCINATE [Imitrex] 4 mg SQ DAILY PRN 12/24/17 01/09/18 Allergies Allergy/AdvReac Type Severity Reaction Status Date / Time No Known Allergies Allergy Verified 12/28/17 17:23 Review of Systems ROS Other: All systems not noted in ROS Statement are negative. <Cirilo Barbosa - Last Filed: 01/09/18 19:59> ROS Other: All systems not noted in ROS Statement are negative. <Master Phan - Last Filed: 01/10/18 05:31> ROS Statement: Those systems with pertinent positive or pertinent negative responses have been documented in the HPI. Past Medical History Past Medical History: No Reported History Additional Past Medical History / Comment(s): Migraines History of Any Multi-Drug Resistant Organisms: MRSA Date of last positivie culture/infection: 2008 per pt MDRO Source:: blood Past Surgical History: No Surgical Hx Reported, Section Additional Past Surgical History / Comment(s): controll implant right upper arm. , right ankle surgery d/t fracture Past Anesthesia/Blood Transfusion Reactions: Postoperative Nausea & Vomiting ( PONV) Past Psychological History: Anxiety, Depression Smoking Status: Current every day smoker Past Alcohol Use History: Daily Past Drug Use History: Marijuana, Opiates - Past Family History Father History Unknown: Yes Additional Family Medical History / Comment(s): unknown reports she has no contact with her family <Cirilo Barbosa - Last Filed: 01/09/18 19:59> General Exam Limitations: no limitations General appearance: alert, in no apparent distress Head exam: Present: atraumatic, normocephalic, normal inspection Eye exam: Present: normal appearance, PERRL, EOMI. Absent: scleral icterus, conjunctival injection, periorbital swelling ENT exam: Present: normal exam, mucous membranes moist Neck exam: Present: normal inspection. Absent: tenderness, meningismus, lymphadenopathy Respiratory exam: Present: normal lung sounds bilaterally. Absent: respiratory distress, wheezes, rales, rhonchi, stridor Cardiovascular Exam: Present: regular rate, normal rhythm, normal heart sounds. Absent: systolic murmur, diastolic murmur, rubs, gallop, clicks GI/Abdominal exam: Present: soft, normal bowel sounds. Absent: distended, tenderness, guarding, rebound, rigid Extremities exam: Present: normal inspection, full ROM, normal capillary refill. Absent: tenderness, pedal edema, joint swelling, calf tenderness Back exam: Present: normal inspection Neurological exam: Present: alert, oriented X3, CN II-XII intact Psychiatric exam: Present: depressed, anxious, manic (Patient does demonstrate some evidence of flight of ideas manic and aggressive her verbal behavior), suicidal ideation Skin exam: Present: warm, dry, intact, normal color. Absent: rash <Cirilo Barbosa - Last Filed: 01/09/18 19:59> <Master Phan - Last Filed: 01/10/18 05:31> - General Exam Comments Initial Comments: This a well-developed well-nourished awake alert female who is demonstrating some flight of ideas (Cirilo Barbosa) Course <Cirilo Barbosa - Last Filed: 01/09/18 19:59> <Master Phan - Last Filed: 01/10/18 05:31> Vital Signs 01/09/18 01/10/18 01/10/18 17:33 04:52 05:18 Temperature 97.9 F 98.6 F 98.1 F Pulse Rate 88 80 71 Respiratory 20 15 15 Rate Blood Pressure 143/91 133/86 130/85 O2 Sat by Pulse 99 98 100 Oximetry - Reevaluation(s) Reevaluation #1: 01/09/18 19:58 The patient continues rest comfortably. Patient will be endorsed to Dr. Phan who will make the final disposition (Cirilo Barbosa) Medical Decision Making <Cirilo Barbosa - Last Filed: 01/09/18 19:59> - Lab Data Result diagrams: 01/10/18 00:40 01/10/18 00:40 - EKG Data -: EKG Interpreted by Me EKG shows normal: sinus rhythm, axis (Normal), intervals (Normal), QRS complexes (Normal), ST-T waves (Normal) Rate: normal (Rate 90 bpm) Interpretation: normal EKG <Master Phan - Last Filed: 01/10/18 05:31> - Medical Decision Making I receive this patient has a sign out. I did go and see the patient regarding ankle pain and swelling. Also discussed her symptoms. After discussion with behavioral health, clinical certification filed (Master Phan) - Lab Data Lab Results 01/09/18 01/09/18 01/09/18 Range/Units 22:50 22:50 22:50 WBC (3.8-10.6) k/uL RBC (3.80-5.40) m/uL Hgb (11.4-16.0) gm/dL Hct (34.0-46.0) % MCV (80.0-100.0) fL MCH (25.0-35.0) pg MCHC (31.0-37.0) g/dL RDW (11.5-15.5) % Plt Count (150-450) k/uL Neutrophils % % Lymphocytes % % Monocytes % % Eosinophils % % Basophils % % Neutrophils # (1.3-7.7) k/uL Lymphocytes # (1.0-4.8) k/uL Monocytes # (0-1.0) k/uL Eosinophils # (0-0.7) k/uL Basophils # (0-0.2) k/uL Sodium (137-145) mmol/L Potassium (3.5-5.1) mmol/L Chloride (98-107) mmol/L Carbon Dioxide (22-30) mmol/L Anion Gap mmol/L BUN (7-17) mg/dL Creatinine (0.52-1.04) mg/dL Est GFR (CKD-EPI)AfAm (>60 ml/min/1.73 sqM) Est GFR (CKD-EPI)NonAf (>60 ml/min/1.73 sqM) Glucose (74-99) mg/dL Calcium (8.4-10.2) mg/dL TSH (0.465-4.680) mIU/L Urine Color Yellow Urine Appearance Clear (Clear) Urine pH 7.0 (5.0-8.0) Ur Specific [place] 1.017 (1.001-1.035) Urine Protein Negative (Negative) Urine Glucose (UA) Negative (Negative) Urine Ketones Negative (Negative) Urine Blood Negative (Negative) Urine Nitrite Negative (Negative) Urine Bilirubin Negative (Negative) Urine Urobilinogen <2.0 (<2.0) mg/dL Ur Leukocyte Esterase Negative (Negative) Urine HCG, Qual Not Detected (Not Detectd) Urine Opiates Screen Not Detected (NotDetected) Ur Oxycodone Screen Not Detected (NotDetected) Urine Methadone Screen Not Detected (NotDetected) Ur Propoxyphene Screen Not Detected (NotDetected) Ur Barbiturates Screen Not Detected (NotDetected) U Tricyclic Antidepress Not Detected (NotDetected) Ur Phencyclidine Scrn Not Detected (NotDetected) Ur Amphetamines Screen Not Detected (NotDetected) U Methamphetamines Scrn Not Detected (NotDetected) U Benzodiazepines Scrn Not Detected (NotDetected) Urine Cocaine Screen Not Detected (NotDetected) U Marijuana (THC) Screen Detected H (NotDetected) 01/10/18 01/10/18 01/10/18 Range/Units 00:40 00:40 00:40 WBC 8.2 (3.8-10.6) k/uL RBC 4.45 (3.80-5.40) m/uL Hgb 12.8 (11.4-16.0) gm/dL Hct 38.6 (34.0-46.0) % MCV 86.8 (80.0-100.0) fL MCH 28.8 (25.0-35.0) pg MCHC 33.2 (31.0-37.0) g/dL RDW 15.5 (11.5-15.5) % Plt Count 328 (150-450) k/uL Neutrophils % 54 % Lymphocytes % 36 % Monocytes % 5 % Eosinophils % 3 % Basophils % 0 % Neutrophils # 4.5 (1.3-7.7) k/uL Lymphocytes # 2.9 (1.0-4.8) k/uL Monocytes # 0.4 (0-1.0) k/uL Eosinophils # 0.2 (0-0.7) k/uL Basophils # 0.0 (0-0.2) k/uL Sodium 141 (137-145) mmol/L Potassium 4.1 (3.5-5.1) mmol/L Chloride 103 (98-107) mmol/L Carbon Dioxide 26 (22-30) mmol/L Anion Gap 12 mmol/L BUN 14 (7-17) mg/dL Creatinine 0.80 (0.52-1.04) mg/dL Est GFR (CKD-EPI)AfAm >90 (>60 ml/min/1.73 sqM) Est GFR (CKD-EPI)NonAf >90 (>60 ml/min/1.73 sqM) Glucose 92 (74-99) mg/dL Calcium 9.8 (8.4-10.2) mg/dL TSH 3.410 (0.465-4.680) mIU/L Urine Color Urine Appearance (Clear) Urine pH (5.0-8.0) Ur Specific [place] (1.001-1.035) Urine Protein (Negative) Urine Glucose (UA) (Negative) Urine Ketones (Negative) Urine Blood (Negative) Urine Nitrite (Negative) Urine Bilirubin (Negative) Urine Urobilinogen (<2.0) mg/dL Ur Leukocyte Esterase (Negative) Urine HCG, Qual (Not Detectd) Urine Opiates Screen (NotDetected) Ur Oxycodone Screen (NotDetected) Urine Methadone Screen (NotDetected) Ur Propoxyphene Screen (NotDetected) Ur Barbiturates Screen (NotDetected) U Tricyclic Antidepress (NotDetected) Ur Phencyclidine Scrn (NotDetected) Ur Amphetamines Screen (NotDetected) U Methamphetamines Scrn (NotDetected) U Benzodiazepines Scrn (NotDetected) Urine Cocaine Screen (NotDetected) U Marijuana (THC) Screen (NotDetected) Disposition <Cirilo Barbosa - Last Filed: 01/09/18 19:59> <Master Phan - Last Filed: 01/10/18 05:31> Clinical Impression: Depression, Alcohol intoxication, Ankle sprain Disposition: TRANSFER TO PSYCH HOSP/UNIT Condition: Fair Referrals: None,Stated [Primary Care Provider] - 1-2 days
[2018-01-09] MEDS ORDERED: NICOTINE 21MG/24HR PATCH TRANSDERM STA (21:35)
[2018-01-09] MEDS ORDERED: ACETAMINOPHEN TAB 325 MG TAB PO STA (22:28)
[2018-01-09 23:09] LABS: Amphetamine Screen,Urine Not Detected (NotDetected); Barbiturate Screen,Urine Not Detected (NotDetected); Benzodiazepines Screen,Urine Not Detected (NotDetected); Cocaine Screen,Urine Not Detected (NotDetected); Methadone Screen, Urine Not Detected (NotDetected); Opiate Screen,Urine Not Detected (NotDetected); Oxycodone Screen, Urine Not Detected (NotDetected); Phencyclidine Screen,Urine Not Detected (NotDetected); Tricyclic Antidepressant,Urine Not Detected (NotDetected); Urn Cannabinoid Scrn Detected (NotDetected)
--- NOTE | 2018-01-09 23:30 | XR ---
EXAMINATION TYPE: XR ankle complete RT DATE OF EXAM: 01/09/2018 COMPARISON: NONE HISTORY: Ankle pain TECHNIQUE: 3 views FINDINGS: There is deformity of the distal tibia with osteosclerosis consistent with an old fracture. There is also similar sclerosis in the dome of the talus. I see no acute fracture. There is a varus deformity of the ankle. Subtalar joint is intact. 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 No acute fr acture seen.
[2018-01-10 00:50] LABS: Basophils % (A) 0 %; Eosinophils # (A) 0.2 k/uL (0-0.7); Eosinophils % (A) 3 %; HCT 38.6 % (34.0-46.0); HGB 12.8 gm/dL (11.4-16.0); Lymphocytes # (A) 2.9 k/uL (1.0-4.8); Lymphocytes % (A) 36 %; MCH 28.8 pg (25.0-35.0); MCHC 33.2 g/dL (31.0-37.0); MCV 86.8 fL (80.0-100.0); Mean Platelet Volume 7.8; Monocytes # (A) 0.4 k/uL (0-1.0); Monocytes % (A) 5 %; Neutrophils # (A) 4.5 k/uL (1.3-7.7); Neutrophils % (A) 54 %; Platelet Count 328 k/uL (150-450); RBC 4.45 m/uL (3.80-5.40); RDW 15.5 % (11.5-15.5); WBC 8.2 k/uL (3.8-10.6)
[2018-01-10 00:58] LABS: Anion Gap 12 mmol/L; Blood Urea Nitrogen 14 mg/dL (7-17); Calcium 9.8 mg/dL (8.4-10.2); Carbon Dioxide 26 mmol/L (22-30); Chloride 103 mmol/L (98-107); Glucose 92 mg/dL (74-99); Potassium 4.1 mmol/L (3.5-5.1); Sodium 141 mmol/L (137-145)
[2018-01-10 01:34] LABS: Appearance,Urine Clear (Clear); Bilirubin,Urine Negative (Negative); Blood,Urine Negative (Negative); Color,Urine Yellow; Glucose,Urine (UA) Negative (Negative); Ketones,Urine Negative (Negative); Leukocyte Esterase,Urine Negative (Negative); Nitrite,Urine Negative (Negative); Protein,Urine Negative (Negative); Specific Gravity,Urine 1.017 (1.001-1.035); Urobilinogen,Urine <2.0 mg/dL (<2.0)
[2018-01-10 06:29] VITALS: BP 133/69; PULSE 80; RESP 18; TEMP 98.4
== END 2018-01-10 06:29 ==
LOC: EC 17:26
DX: S93.401A Sprain of unspecified ligament of right ankle, initial encounter (principal); F32.9 Major depressive disorder, single episode, unspecified; F10.120 Alcohol abuse with intoxication, uncomplicated; F17.200 Nicotine dependence, unspecified, uncomplicated; Z86.69 Personal history of other diseases of the nervous system and sense organs; Z86.14 Personal history of Methicillin resistant Staphylococcus aureus infection; Z79.1 Long term (current) use of non-steroidal anti-inflammatories (NSAID); Z79.51 Long term (current) use of inhaled steroids; Z79.899 Other long term (current) drug therapy; X50.1XXA Overexertion from prolonged static or awkward postures, initial encounter
CPT/HCPCS: 99285; 82075; 36415; 93005; 80048; 84443; 85025; 81003; 81025; 80306; 73610; S4990